=== PATIENT | female | born 1965 | race Caucasian/White ===

== ENCOUNTER 2019-05-03 20:28 | Emergency (ER) | payer BC ==
[~2019-05-03] VITALS: Ht 152.4 cm; Wt 43.1 kg
[~2019-05-03 20:28] MED LIST: ALBU90OI; ALBU90OI INH; ANORO ELLIPTA1 EACH INH; ASPI81EC PO; CEPH500 PO; CIPR500 PO; CITA20 PO; COMBIVENT RESPIM4 GM INH; DIAZ10 PO; HYDACE10B PO; HYDACE5; HYDACE5 PO; HYDACE5325 PO; LAMO50 PO; LEVFLO500 PO; LORA2 PO; METPRE4DP PO; OLAN2.5 PO; OXYACE5T PO; OXYC10TA19 PO; POTCHL20ER PO; PRED20 PO; Prednisone20 MG PO; QUET100 PO; QUET25 PO; RABE20 PO; SULTRIDS PO; TIOT18 IH; TRAM50 PO; [UNRECOGNIZED DRUG - OTHER]
== END 2019-05-03 22:10 | disposition home or self-care (01) ==
LOC: ER 20:28
DX: S60.211A Contusion of right wrist, initial encounter (principal); W22.8XXA Striking against or struck by other objects, initial encounter; Z88.0 Allergy status to penicillin; Z79.899 Other long term (current) drug therapy; F32.9 Major depressive disorder, single episode, unspecified; J44.9 Chronic obstructive pulmonary disease, unspecified; F17.210 Nicotine dependence, cigarettes, uncomplicated
CPT/HCPCS: 29125; 73100; 99283-25; L3917

== ENCOUNTER 2020-12-24 19:30 | Emergency (ER) | payer BC ==
[~2020-12-24] VITALS: Ht 152.4 cm; Wt 39.5 kg
[2020-12-24 20:01] LABS: BASOPHILS ABSOLUTE AUTO 0.05 K/mm3 (0.00-0.23); BASOPHILS PERCENT AUTO 0 % (0-2); EOSINOPHILS ABSOLUTE AUTO 0.07 K/mm3 (0.00-0.68); EOSINOPHILS PERCENT AUTO 1 % (0-6); Hematocrit 42.9 % (33.0-51.0); Hemoglobin 14.2 g/dL (11.5-16.0); Mean Corpuscular HGB 30.9 pg (26.0-34.0); Mean Corpuscular HGB Conc 33.1 g/dL (31.5-36.5); Mean Corpuscular Volume 94 fL (80-100); Mean Platelet Volume 10.8 fL (9.1-12.4); Platelet Count 288 K/mm3 (150-400); RDW Coefficient Variation 13.1 % (11.7-14.2); RDW Standard Deviation 44.9 fL (35.1-46.3); Red Blood Cell Count 4.59 M/mm3 (3.80-5.20); White Blood Cell Count 14.25 K/mm3 (4.00-11.30)
[2020-12-24 20:04] LABS: IMMATURE GRAN ABSOLUTE AUTO 0.04 K/mm3 (0.00-0.10); IMMATURE GRAN PERCENT AUTO 0 % (0-1); LYMPHOCYTES ABSOLUTE AUTO 5.99 K/mm3 (0.84-5.20); LYMPHOCYTES PERCENT AUTO 42 % (21-46); MONOCYTES ABSOLUTE AUTO 0.81 K/mm3 (0.16-1.47); MONOCYTES PERCENT AUTO 6 % (4-13); NEUTROPHILS ABSOLUTE AUTO 7.29 K/mm3 (1.96-9.15); NEUTROPHILS PERCENT AUTO 51 % (41-73)
[2020-12-24 20:17] LABS: Alanine Aminotransfer (ALT/SGP 21 U/L (12-78); Albumin, Blood 4.2 g/dL (3.4-5.0); Albumin/Globulin Ratio 1.1 (0.8-1.8); Alk Phos 95 U/L (50-136); Anion Gap 4 mmol/L (6-16); Aspartate Aminotrans (AST/SGOT 12 U/L (12-37); Bilirubin, Total 0.5 mg/dL (0.1-1.0); Blood Urea Nitrogen 11 mg/dL (8-24); Bun/Creatinine Ratio 17.2 (12.0-20.0); CO2, Blood 27 mmol/L (21-32); Calcium, Blood 9.3 mg/dL (8.5-10.1); Chloride, Blood 106 mmol/L (98-108); Creatinine, Blood 0.64 mg/dL (0.40-1.00); Globulin, Blood 3.8 g/dL (2.2-4.0); Glomerular Filtration Rate >60 (60-); Glucose, Blood 92 mg/dL (70-99); Potassium, Blood 3.8 mmol/L (3.5-5.5); Sodium, Blood 137 mmol/L (136-145)
[2020-12-24 21:58] LABS: Source, Urine Clean Catch
[2020-12-24 22:00] LABS: Bilirubin, Urine Neg (Neg); Blood, Urine 1+ (Neg); Glucose Qualitative, Urine Neg (Neg); Ketones, Urine Neg (Neg); Leukocyte Esterase, Urine Neg (Neg); Nitrite, Urine Neg (Neg); Protein, Urine Neg (Neg); Urobilinogen, Urine NORM (Normal)
[2020-12-24 22:06] LABS: Appearance, Urine Clear (Clear); Bacteria Not Seen /hpf; Color, Urine Yellow (P-Yellow); Red Blood Cells, Urine 0-2 /hpf (0-2); Squamous Epithelial Cells Few /hpf (Few); White Blood Cells, Urine 0-2 /hpf (0-5)
== END 2020-12-24 22:39 | disposition left against medical advice (07) ==
LOC: ER 19:30
PROVIDERS: Physician Assistant
DX: R10.9 Unspecified abdominal pain (principal); Z53.21 Procedure and treatment not carried out due to patient leaving prior to being seen by health care provider
CPT/HCPCS: 36415; 76770; 80053; 81001; 85025; 99284-25

== ENCOUNTER 2022-08-26 10:09 | Emergency (ER) | payer BC ==
[~2022-08-26] VITALS: Ht 154.9 cm; Wt 40.8 kg
[2022-08-26 11:43] LABS: BASOPHILS ABSOLUTE AUTO 0.04 K/mm3 (0.00-0.23); BASOPHILS PERCENT AUTO 0 % (0-2); EOSINOPHILS PERCENT AUTO 1 % (0-6); Hematocrit 46.7 % (33.0-51.0); Hemoglobin 15.6 g/dL (11.5-16.0); IMMATURE GRAN ABSOLUTE AUTO 0.03 K/mm3 (0.00-0.10); IMMATURE GRAN PERCENT AUTO 0 % (0-1); LYMPHOCYTES ABSOLUTE AUTO 3.33 K/mm3 (0.84-5.20); LYMPHOCYTES PERCENT AUTO 25 % (21-46); MONOCYTES ABSOLUTE AUTO 0.68 K/mm3 (0.16-1.47); MONOCYTES PERCENT AUTO 5 % (4-13); Mean Corpuscular HGB 31.6 pg (26.0-34.0); Mean Corpuscular HGB Conc 33.4 g/dL (31.5-36.5); Mean Corpuscular Volume 95 fL (80-100); Mean Platelet Volume 10.7 fL (9.1-12.4); NEUTROPHILS ABSOLUTE AUTO 9.08 K/mm3 (1.96-9.15); NEUTROPHILS PERCENT AUTO 69 % (41-73); Platelet Count 274 K/mm3 (150-400); RDW Coefficient Variation 13.4 % (11.7-14.2); Red Blood Cell Count 4.93 M/mm3 (3.80-5.20); White Blood Cell Count 13.26 K/mm3 (4.00-11.30)
[2022-08-26 12:08] LABS: Albumin, Blood 4.2 g/dL (3.4-5.0); Albumin/Globulin Ratio 1.2 (0.8-1.8); Bilirubin, Total 0.6 mg/dL (0.1-1.0); Bun/Creatinine Ratio 26.5 (12.0-20.0); Calcium, Blood 9.3 mg/dL (8.5-10.1); Creatinine, Blood 0.53 mg/dL (0.40-1.00); Free Thyroxine 1.2 ng/dL (0.70-1.60); Globulin, Blood 3.6 g/dL (2.2-4.0); Magnesium, Blood 2.2 mg/dL (1.6-2.4); Potassium, Blood 4.1 mmol/L (3.5-5.5); Thyroid Stimulating Hormone 0.584 uIU/mL (0.360-4.800); Total Protein, Blood 7.8 g/dL (6.4-8.2)
== END 2022-08-26 13:35 | disposition home or self-care (01) ==
LOC: ER 10:09
PROVIDERS: Physician Assistant
DX: R20.2 Paresthesia of skin (principal); J44.9 Chronic obstructive pulmonary disease, unspecified; F17.210 Nicotine dependence, cigarettes, uncomplicated; Z88.0 Allergy status to penicillin; Z79.899 Other long term (current) drug therapy
CPT/HCPCS: 36415; 70450; 80053; 83735; 84439; 84443; 85025; 99284-25

== ENCOUNTER 2022-12-19 12:16 | Inpatient (IN) | payer BC ==
[~2022-12-19] VITALS: Ht 172.7 cm; Wt 35.9 kg
[2022-12-19] MEDS ORDERED: PRED20 PO (12:33)
[2022-12-19] MEDS ORDERED: TRELEGY ELLIPT1 EACH IH (12:34)
[2022-12-19] MEDS ORDERED: ASPI81CH PO (12:34)
[2022-12-19] MEDS ORDERED: COMBIVENT RESPIM4 G1 (12:34)
[2022-12-19] MEDS ORDERED: ALBU90OI INH (12:35)
[2022-12-19 12:40] LABS: BASOPHILS ABSOLUTE AUTO 0.01 K/mm3 (0.00-0.23); BASOPHILS PERCENT AUTO 0 % (0-2); EOSINOPHILS ABSOLUTE AUTO 0.04 K/mm3 (0.00-0.68); EOSINOPHILS PERCENT AUTO 0 % (0-6); Hematocrit 43.3 % (33.0-51.0); Hemoglobin 13.7 g/dL (11.5-16.0); IMMATURE GRAN ABSOLUTE AUTO 0.02 K/mm3 (0.00-0.10); IMMATURE GRAN PERCENT AUTO 0 % (0-1); LYMPHOCYTES ABSOLUTE AUTO 1.63 K/mm3 (0.84-5.20); LYMPHOCYTES PERCENT AUTO 18 % (21-46); MONOCYTES ABSOLUTE AUTO 1.12 K/mm3 (0.16-1.47); MONOCYTES PERCENT AUTO 12 % (4-13); Mean Corpuscular HGB 31.4 pg (26.0-34.0); Mean Corpuscular HGB Conc 31.6 g/dL (31.5-36.5); Mean Corpuscular Volume 99 fL (80-100); Mean Platelet Volume 10.8 fL (9.1-12.4); NEUTROPHILS ABSOLUTE AUTO 6.51 K/mm3 (1.96-9.15); NEUTROPHILS PERCENT AUTO 70 % (41-73); Platelet Count 219 K/mm3 (150-400); RDW Coefficient Variation 13.6 % (11.7-14.2); RDW Standard Deviation 50.2 fL (35.1-46.3); Red Blood Cell Count 4.37 M/mm3 (3.80-5.20); White Blood Cell Count 9.33 K/mm3 (4.00-11.30)
[2022-12-19 12:58] LABS: Alanine Aminotransfer (ALT/SGP 49 U/L (12-78); Albumin/Globulin Ratio 1.3 (0.8-1.8); Alk Phos 68 U/L (50-136); Anion Gap Unable to Calculate mmol/L (6-16); Aspartate Aminotrans (AST/SGOT 30 U/L (12-37); Bilirubin, Total 0.4 mg/dL (0.1-1.0); Blood Urea Nitrogen 10 mg/dL (8-24); Bun/Creatinine Ratio 20.8 (12.0-20.0); CO2, Blood 39 mmol/L (21-32); Calcium, Blood 9.1 mg/dL (8.5-10.1); Chloride, Blood 102 mmol/L (98-108); Creatinine, Blood 0.48 mg/dL (0.40-1.00); Globulin, Blood 3.1 g/dL (2.2-4.0); Glomerular Filtration Rate 111 (60-); Glucose, Blood 100 mg/dL (70-99); Potassium, Blood 4.2 mmol/L (3.5-5.5); Sodium, Blood 137 mmol/L (136-145); Total Protein, Blood 7.1 g/dL (6.4-8.2)
--- NOTE | 2022-12-19 18:47 | NUR ---
New ER admit, admitted obs status for a/c respiratory failure. Patient AOx4, appears anxious, tearful, verbalizes that she has a lot of stress at home, and caring for her disabled who is a vet. She becomes more SOB, tremorous when discussing home life. Patient reports that she smokes cigarretes daily & smokes marijuana all day, this helps her sleep at night. Stated that she recently started cough up "black chunks" and wants to quit smoking. No production cough noted on assessment. 5lpm baseline, sats stable on 4lpm at this time. Labored, pursed lip breathing observed. Atarax given for anxiety. Unable to take admit vitals, patient stated BP cuff was painful, and she said she could not handle it and took the cuff off. melatonin for HS. Patient currently resting in bed, solumedrol ordered for COPD exacerbation. Will continue plan of care.
[2022-12-20 06:36] VITALS: BP 136/95
[2022-12-20 07:29] VITALS: BP 113/77
--- NOTE | 2022-12-20 07:45 | NUR ---
NONA ACTUALLY SLEPT WELL ALL NIGHT ON 0.5MG ATIVAN AT HS. NO COMPLAINTS OF PAIN OR DISCOMFORT. SHE WAS EXTREMELY ACUTELY ANXIOUS WHEN THIS RN INITIALLY ENTERED HER ROOM TO SPEAK. SHE DOES APPRECIATE BEING LISTENED TO. SHE COULD BENEFIT FROM [facility] [employer] TO GIVE HER SOME RESPITE FROM HER PRESSURES OF CAREGIVING 29/03. PATIENT INSISTED SHE WOULD NOT BE INTERESTED IN SMOKING CESSTATION AT THIS TIME.
[2022-12-20 16:14] VITALS: BP 124/66
--- NOTE | 2022-12-20 19:33 | NUR ---
SHIFT SUMMARY PT REMAINS TO BE EXTREMELY ANXIOUS. SHE REPORTS HAVING BIPOLAR AND OCD THAT IS CONTRIBUTING TO THE ANXIETY. SHE REPORTS CAREGIVER STRESS. PT IS ALERT AND ORIENTED X4. NUTRITION CONSULT IS ORDERED. PT EDUCATED ON RISKS OF LEAVING AMA PT DECIDED SHE WILL STAY FOR NOW. TREATED ANXIETY PER EMAR
--- NOTE | 2022-12-20 20:01 | NUR ---
EVENING ASSESSMENT REVEALS ANXIOUS TEARFUL PATIENT WHO IS VISIBLY TREMULOUS PLEADING TO GO OUT WITH STAFF TO ADMITTEDLY GO OUT TO SMOKE. HOSPITAL POLICY AGAIN EXPLAINED TO PATIENT WHO WAS STILL DISTRAUGHT. ASKED PATIENT IF SHE WOULD BE WILLING TO STAY IN IF THIS RN COULD GET THE SAME MEDICATION (MG ATIVAN) TO HELP HER SLEEP THROUGH THE NIGHT, AND GIVE HERSELF ANOTHER NIGHT OF REST
[2022-12-20 20:25] VITALS: BP 151/75
[2022-12-21 03:35] VITALS: BP 121/73
--- NOTE | 2022-12-21 06:34 | NUR ---
PATIENT AGAIN QUITE ANXIOUS AND TEARFUL FROM THE BEGINNING OF THE EVENING.. NOTHING APPEARS TO CONSOLE HER WITH REGARD TO HER FEELINGS OF INADEQUECY IN DEALING WITH HER HOME SITUATION. SHE FEELS SHE HAS NO OUTLET OTHER THAN TO GO OUTSIDE AND SMOKE. THIS RN REMINDED HER THAT THE EXACERBATION OF HER LUNG CONDITION IS THE REASON SHE WAS IN THE HOSPITAL, AND THAT SMOKING IS NOT ALLOWED ON CAMPUS, AND SHE STILL WAS VERY DISTRAUGHT. AGAIN BEGINNING TO CRY. NIGHT HOSPITALIST WAS CALLED AND AGAIN, ORDER RECEIVED FOR 0.5MG IV ATIVAN WHICH PATIENT AGREED TO.. AFTER THAT SHE SLEPT PEACEFULLY THROUGH THE NIGHT.
[2022-12-21 08:10] VITALS: BP 121/96
[2022-12-21] MEDS ORDERED: MELATONIN5 M1 PO (10:35)
[2022-12-21] MEDS ORDERED: BUSP5 PO (10:35)
[2022-12-21] MEDS ORDERED: Nicoderm Cq1 EAC1 TOP (10:35)
[2022-12-21] MEDS ORDERED: Deltasone 10 mg10 MG PO (10:37)
--- NOTE | 2022-12-21 13:18 | NUR ---
PT REQUIRING 5L NC, HOME O2 EVAL ORDERED FOR PT TO RECEIVE HOME O2. PT INFORMED OF IMPORTANCE OF STAYING FOR HOME EVAL AND O2 ARRIVAL. PT TALKED TO BY MULTIPLE STAFF MEMBERS ATTEMPTING TO HAVE PT STAY. PT CONTINUES TO SCREAM THAT SHE WANTS TO GO HOME AND IS NON COMPLIANT AT THIS POINT. PER PT REQUEST PTS FAMILY MEMBER TOOK PT OFF UNIT FOR DISCHARGE AGAINST STAFFING REQUEST. IV REMOVED AND D/C PAPERWORK SIGNED PRIOR TO PT LEAVING. FAMILY MEMBER AND PT BOTH EDUCATED MULTIPLE TIMES RELATING DANGERS OF PT LEAVING WITHOUT OXYGEN.
== END 2022-12-21 13:16 | disposition home or self-care (01) | DRG 189 ==
LOC: ER 12:16 → MEDS 14:27
PROVIDERS: Emergency Medicine; ADMIT Family Medicine
DX: J96.21 Acute and chronic respiratory failure with hypoxia (principal); E43 Unspecified severe protein-calorie malnutrition; J44.1 Chronic obstructive pulmonary disease with (acute) exacerbation; Z68.1 Body mass index [BMI] 19.9 or less, adult; F17.210 Nicotine dependence, cigarettes, uncomplicated; I25.10 Atherosclerotic heart disease of native coronary artery without angina pectoris; F12.10 Cannabis abuse, uncomplicated; F41.0 Panic disorder [episodic paroxysmal anxiety]; K46.9 Unspecified abdominal hernia without obstruction or gangrene; F42.9 Obsessive-compulsive disorder, unspecified; F31.9 Bipolar disorder, unspecified; Z88.0 Allergy status to penicillin; Z71.6 Tobacco abuse counseling; Z99.81 Dependence on supplemental oxygen; Z79.899 Other long term (current) drug therapy; Z79.52 Long term (current) use of systemic steroids; Z79.82 Long term (current) use of aspirin; Z79.51 Long term (current) use of inhaled steroids; Z95.1 Presence of aortocoronary bypass graft
CPT/HCPCS: 36415; 71046; 80053; 84484; 85025; 93005; 93010; 94640; 94664; 94760; 96374; 99285-25; A9270; J1650; J2060; J2930